=== PATIENT | female | born 1960 | race Caucasian/White ===

== ENCOUNTER 2016-12-02 10:12 | Emergency (ER) | payer MEDICAID ==
[~2016-12-02] VITALS: Ht 162.6 cm; Wt 81.6 kg
[2016-12-02 10:36] VITALS: BP 117/73
[2016-12-02] MEDS ORDERED: GABAPENTIN600 MG PO (10:40)
[2016-12-02] MEDS ORDERED: LASIX20 M1 PO (10:40)
[2016-12-02] MEDS ORDERED: PROVENTIL HFA M18 GM INH (10:40)
[2016-12-02] MEDS ORDERED: PRILOSEC OTC20 MG PO (10:40)
--- NOTE | 2016-12-02 10:42 | NUR ---
PT AMBUATED TO ER BED01.
--- NOTE | 2016-12-02 10:45 | NUR ---
56/F C/O COUGH, FEVER, AND SORE THROAT SINCE LAST NIGHT. PT AAOX4. LUNG SOUNDS CLR. PRODUCTIVE COUGH NOTED.
[2016-12-02] MEDS ORDERED: ALBUTEROL SULFATE/IPRATROPIU 3 ML SOL IH ONE (11:25)
--- NOTE | 2016-12-02 11:25 | NUR ---
RT AT BEDSIDE.
--- NOTE | 2016-12-02 11:45 | NUR ---
ORANGE SURVEY GIVEN TO PT.
[2016-12-02 11:54] VITALS: BP 110/79
--- NOTE | 2016-12-02 12:15 | NUR ---
Patient discharged with v/s stable. Written and verbal after care instructions given and explained. Patient alert, oriented and verbalized understanding of instructions. Ambulatory with steady gait. All questions addressed prior to discharge. ID band removed. Patient advised to follow up with PMD. Rx of AZITHROMYCIN AND PREDNISONE given. Patient educated on indication of medication including possible reaction and side effects. Opportunity to ask questions provided and answered.
== END 2016-12-02 12:15 | disposition home or self-care (01) ==
LOC: MED 10:12
DX: J20.9 Acute bronchitis, unspecified (principal); J02.9 Acute pharyngitis, unspecified; J45.909 Unspecified asthma, uncomplicated; Z88.0 Allergy status to penicillin
CPT/HCPCS: 94640; 99283; J7620